=== PATIENT | male | born 1985 | race American Indian/Alaskan Native ===

== ENCOUNTER 2019-03-15 20:42 | Emergency (ER) | payer OTHER ==
[2019-03-15 21:06] VITALS: BP 146/62
[2019-03-15] MEDS ORDERED: KETOROLAC 60 MG/2 ML INJ IM ONE (22:10)
[2019-03-15] MEDS ORDERED: dexAMETHasone 20 MG/5 ML VIAL IM ONE (22:17)
--- NOTE | 2019-03-15 22:26 | Emergency Department Report ---
ED Upper Extremity Inj HPI - General Chief Complaint: Extremity Injury, Upper Stated Complaint: NUMBNESS IN ARMS Time Seen by Provider: 03/15/19 21:53 Source: patient Mode of arrival: Ambulatory Limitations: No Limitations - History of Present Illness Initial Comments: 33-year-old male with a past medical history of chronic back pain presents to the hospital complaining of pain to bilateral fingers and hands and fingers for the last week. Pain is described as tingling with intermittent shooting pain radiates up his arm. Patient recently started a job at a [employer] where he performs heavy lifting. He denies any recent injury. He denies neck pain, weakness, or fever. Pain is constant and worse with movement of his wrist. Patient taken Tylenol without relief. - Related Data Previous Rx's Medication Instructions Recorded Last Taken Type Ibuprofen [Motrin] 800 mg PO Q8HR PRN #30 tablet 03/15/19 Unknown Rx traMADol [Ultram 50 MG tab] 50 mg PO Q6HR PRN #20 tablet 03/15/19 Unknown Rx Allergies Allergy/AdvReac Type Severity Reaction Status Date / Time No Known Allergies Allergy Verified 03/15/19 20:48 ED Review of Systems ROS: Stated complaint: NUMBNESS IN ARMS Other details as noted in HPI Comment: All other systems reviewed and negative ED Past Medical Hx - Past Medical History Previous Medical History?: Yes Additional medical history: chronic lower back - Surgical History Past Surgical History?: No - Social History Smoking Status: Current Every Day Smoker Substance Use Type: Alcohol - Medications Home Medications: Home Medications Medication Instructions Recorded Confirmed Last Taken Type Ibuprofen [Motrin] 800 mg PO Q8HR PRN #30 tablet 03/15/19 Unknown Rx traMADol [Ultram 50 MG tab] 50 mg PO Q6HR PRN #20 tablet 03/15/19 Unknown Rx ED Physical Exam - General Limitations: No Limitations - Other Other exam information: Gen.: No acute distress Head: Atraumatic Eyes: Normal appearance ENT: Moist mucous membranes Neck: Normal appearance, no posterior midline tenderness, no meningismus Chest: Clear to auscultation bilaterally Cardiovascular: Regular rate and rhythm Abdomen: Normal appearance, soft, nontender, no rebound or guarding, normal bowel sounds Back: Normal appearance, nontender Extremity: Full range of motion, normal appearance Neuro: Alert oriented 3, clear speech, patient's full sensation to touch to the dorsum of his hand. He has decreased sensation to touch on the palmar aspect of both hands and his thumb, index, middle, and radial side ring finger. Patient has normal sensation to the fifth finger. 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 Psychiatric: Appropriate Skin: No rash ED Course Vital Signs 03/15/19 21:04 Temperature 98.5 F Pulse Rate 84 Respiratory 18 Rate Blood Pressure 146/62 O2 Sat by Pulse 100 Oximetry ED Medical Decision Making - Lab Data Lab Results 03/15/19 Range/Units 23:11 POC Glucose 64 L (70-105) - Medical Decision Making Patient has numbness and paresthesias along the median nerve distribution of bilateral hands. This is new onset since starting his new job. I suspect carpal tunnel syndrome. Patient received IM Decadron and Toradol as well as bilateral wrist splints. Outpatient follow-up with orthopedics would be advised. Medications for pain information will be prescribed. Will be prescribed - Differential Diagnosis carpal tunnel, radiculopathy, neuropathy Critical Care Time: No Critical care attestation.: If time is entered above; I have spent that time in minutes in the direct care of this critically ill patient, excluding procedure time. ED Disposition Clinical Impression: Carpal tunnel syndrome on both sides Disposition: DC-01 TO HOME OR SELFCARE Is pt being admited?: No Does the pt Need Aspirin: No Condition: Stable Instructions: Carpal Tunnel Syndrome (ED) Additional Instructions: Take the medication as prescribed. Follow-up with your doctor or with the doctor/clinic provided. Return if symptoms worsen as indicated by your discharge instructions. Prescriptions: Ibuprofen [Motrin] 800 mg PO Q8HR PRN #30 tablet PRN Reason: Pain, Moderate (4-6) traMADol [Ultram 50 MG tab] 50 mg PO Q6HR PRN #20 tablet PRN Reason: Pain Referrals: PRIMARY CAREMD [Primary Care Provider] - 3-5 Days HAKEEM GRANADO MD [Staff Physician] - 3-5 Days [facility] [Provider Group] - 3-5 Days Forms: Work/School Release Form(ED) Time of Disposition: 23:10
== END 2019-03-15 23:20 | disposition home or self-care (01) ==
LOC: ED 20:42
DX: G56.03 Carpal tunnel syndrome, bilateral upper limbs (principal); M54.5 Low back pain; G89.29 Other chronic pain; F17.200 Nicotine dependence, unspecified, uncomplicated; Z79.899 Other long term (current) drug therapy
CPT/HCPCS: 82962; 96372; 99283; J1100; J1885